=== PATIENT | male | born 1990 | race Caucasian/White ===

== ENCOUNTER 2024-11-12 13:39 | Emergency (ER) | payer OTHER ==
[2024-11-12 13:50] VITALS: BP 120/82; PULSE 79; RESP 18; TEMP 98.6; BMI 27.1
[2024-11-12] MEDS ORDERED: IBUPROFEN 600 MG TABLET (FP) PO ONE (14:52)
[2024-11-12] MEDS: IBUPROFEN 600 MG TABLET (FP) PO ONE (14:54)
== END 2024-11-12 14:56 | disposition home or self-care (01) ==
LOC: JERFT 13:39
DX: S90.32XA Contusion of left foot, initial encounter (principal); W20.8XXA Other cause of strike by thrown, projected or falling object, initial encounter
CPT/HCPCS: 73630-TC-LT; 99283-25